=== PATIENT | male | born 1980 | race Two or more races ===

== ENCOUNTER 2019-02-14 18:37 | Emergency (ER) | payer SELFPAY ==
[~2019-02-14] VITALS: Ht 165.1 cm; Wt 72.8 kg
[2019-02-14 18:40] VITALS: BP 130/62
== END 2019-02-14 23:23 | disposition home or self-care (01) ==
LOC: ED 22:21
DX: T83.198A Other mechanical complication of other urinary devices and implants, initial encounter (principal)
CPT/HCPCS: 99284

== ENCOUNTER 2019-05-16 12:14 | Emergency (ER) | payer SELFPAY ==
[~2019-05-16] VITALS: Ht 165.1 cm; Wt 76.0 kg
--- NOTE | 2019-05-16 12:30 | NUR ---
PT GOES TO [facility]OP[facility] TO GET CATHETERS REPLACED. PT WENT TODAY TO GET CATHETER REPLACED AND IT IS NOT WORKING. HX OF SPINA BIFIDA. PT RESTING COMFORTABLE. AWAITING MD ORDER
[2019-05-16 13:54] VITALS: BP 106/73
--- NOTE | 2019-05-16 13:55 | NUR ---
TASK RN: PT RESTING ON GURNEY, VSS, URINE OUT 700CC, NO OTHER COMPLAINTS.
--- NOTE | 2019-05-16 14:43 | NUR ---
Patient/Caregiver given discharge instructions and they have confirmed that they understand the instructions. Patient ambulatory with steady gait.
== END 2019-05-16 14:46 | disposition home or self-care (01) ==
LOC: ED 14:34
DX: R33.9 Retention of urine, unspecified (principal); Z87.891 Personal history of nicotine dependence
CPT/HCPCS: 51702; 99284